=== PATIENT | female | born 1955 | race Caucasian/White ===

== ENCOUNTER 2024-06-07 22:30 | Emergency (ER) | payer MEDICARE, MEDICAID, SELFPAY ==
--- NOTE | ~2024-06-07 | CT_ITS ---
CT of the Abdomen and Pelvis: Indication: Abdominal pain Technique: 2.5 mm axial scans were obtained through the abdomen and pelvis following intravenous adm inistration of 100 cc of Omnipaque 350. Dose reduction technique was used on this scan by utilizing a utomated exposure control and iterative reconstruction technique. The dose-length product (DLP) was 1 739.41 mGy-cm. Findings: Scans through the lung bases are unremarkable. The liver, spleen, and pancreas are within normal limits. Suspected subtle gallstones. Bilateral adre nal nodules are present, measuring 1.8 cm and the left adrenal gland, and 1.5 cm in the right. There is an 8 mm stone at the left UPJ region, with mild to moderate left hydronephrosis. There is an addit ional 12 mm stone more centrally in the left renal pelvis, partially obstructing. Small left lower po le renal stones are present measuring up to 5 mm. Probable punctate nonobstructing right renal stone. No right ureteral stone or right hydronephrosis. No evidence of aortic aneurysm. No lymphadenopathy . No bowel obstruction or bowel wall thickening. There is no evidence to suggest acute appendicitis. Images through the pelvis were performed. Urinary bladder unremarkable. Uterine fibroids are present. No ascites.There is extensive degenerative spondylosis of the spine. Impression: 8 mm obstructing stone at the left UPJ, with mild to moderate left hydronephrosis and mild left para stranding. Additional bilateral nonobstructing stones, left larger and more numerous than right, as detailed abo ve. Probable cholelithiasis. Uterine fibroids. Bilateral adrenal nodules, stable as compared to prior lumbar spine CT dated 04/19/2017. Stability ov er this interval is compatible with benign lesion such as adenomas.. Reviewed, dictated and finalized at location [facility] [employer] [employer] Impression: 8 mm obstructing stone at the left UPJ, with mild to moderate left hydronephros is and mild left para stranding. Additional bilateral nonobstructing stones, left larger and more numerous than right, as detailed above. Probable cholelithiasis. Uterine fibroids. Bilateral adrenal nodules, stable as compared to prior lumbar spine CT dated . Stability over this interval is compatible with benign lesion such as adenomas..
[2024-06-07 22:38] VITALS: BP 197/89; PULSE 103; RESP 16; TEMP 36.3; O2SAT 100
--- NOTE | 2024-06-08 01:04 | ED_ITS ---
HPI - General Adult General Chief complaint: Nausea/Vomiting/Diarrhea Stated complaint: suprapubic pain, n/v Time Seen by Provider: 06/07/24 23:57 History of Present Illness HPI narrative: Patient is a 68-year-old female who presents to the emergency department this evening complaining of a suprapubic pain associated with nausea and vomiting which started around 6:00 p.m. this evening. Patient states that she has been having these symptoms intermittently for the past few months but states that they have gotten worse the past few days. Patient states that today the pain was so severe that it caused her to vomit. Denies any urinary symptoms including dysuria or hematuria. Patient states that normally she has an overactive bladder and needs to pee every but noticed that for the past few hours she has not been able to urinate. Denies any hematuria. Denies any fevers or chills at home denies any upper abdominal/epigastric pain. Denies any constipation/diarrhea, melena or hematochezia. No additional symptoms or concerns at this time. Related Data Allergies Allergy/AdvReac Type Severity Reaction Status Date / Time NKDA Allergy Unknown Uncoded 12/19/02 13:34 Review of Systems 2 Review of Systems: All systems are reviewed and are negative unless stated otherwise in the HPI. Exam 2 Narrative: General: Alert, awake, afebrile, in no acute distress, obese. HEENT: PERRL, no rhinorrhea, no post nasal drip, oropharynx clear. Neck: Trachea midline, no JVD, no lymphadenopathy. Cardiovascular: Regular rate and rhythm, no murmurs, rubs or gallops, no peripheral edema. Respiratory: Clear to auscultation bilaterally, no tachypnea, no wheezing, no rhonchi, no rubs, no respiratory distress. Abdomen: Soft, nontender, nondistended, no rebound, no guarding, no peritoneal signs. Musculoskeletal: No joint swelling or deformity, normal muscle tone. Skin: No rashes or petechia, no signs of infection. Psychiatric: Alert and oriented, normal behavior and judgment for situation. Neurological: Alert and oriented to person, place, and time. Follows all commands. No focal deficits, speech is clear and fluent. Course Vital Signs Vital signs: Vital Signs Temperature 97.4 F L 06/07/24 22:38 Pulse Rate 103 H 06/07/24 22:38 Respiratory Rate 16 06/07/24 22:38 Blood Pressure 197/89 H 06/07/24 22:38 Pulse Oximetry 100 06/07/24 22:38 Oxygen Delivery Room Air 06/07/24 22:38 Temperature 97.4 F L 06/07/24 22:38 Pulse Rate 103 H 06/07/24 22:38 Respiratory Rate 16 06/07/24 22:38 Blood Pressure 197/89 H 06/07/24 22:38 Pulse Oximetry 100 06/07/24 22:38 Oxygen Delivery Room Air 06/07/24 22:38 Medical Decision Making MDM Narrative Medical decision making narrative: The patient was evaluated by myself in the emergency department. History is obtained from patient who is an independent historian and physical exam was performed. External medical records were reviewed at this time. IV was established and pertinent tests were ordered. Patient was administered an oral Tylenol for her arthritis pain per her request as a sitting in the waiting room/wheelchair has been very uncomfortable. She states that her suprapubic pain is intermittent and currently denies any suprapubic pain. Laboratory results obtained revealing a leukocytosis of 14, lactic acid 2.3 otherwise unremarkable. Urinalysis revealed 2+ blood otherwise unremarkable. Imaging studies obtained included CT abdomen pelvis with IV contrast which was independently interpreted by me revealing a 6 x 7 mm left UVJ obstructing stone with mild left-sided hydronephrosis, which is pending final radiology interpretation. Patient was informed of these findings at bedside and that she will need to follow-up with urology as an outpatient and patient is agreeable with this plan. Differential diagnosis considerations include urinary tract infection, renal colic/nephrolithiasis, pyelonephritis. Comorbidities impacting this visit include none. I have evaluated and discussed social determinants of health with the patient that could potentially impact subsequent diagnosis and treatment plans. On repeat assessment of the patient, reevaluation revealed that the patient is doing well and is in no acute distress. Patient symptoms have improved since she arrived to our emergency department. Repeat vital signs were all reviewed and noted to be stable. Differential diagnosis and treatment plan were discussed with the patient at bedside. Patient agrees with discussion and after shared medical decision making agrees with discharge. All questions were answered to the patient's satisfaction. Patient will follow up with Urology with Dr. Mckeon in 3-5 days. She was provided with scripts for [place], Zofran, Flomax and ibuprofen to use as prescribed for her kidney stone. She was also provided with a urine strainer in the emergency department. Patient was administered an oral [place] 5-325 mg in the ED since her pharmacy does not open for few hours. Patient was provided with strict return precautions and instructed to return to the emergency department if any new or worsening symptoms develop. The patient was discharged in stable condition. Vital Signs Vital Signs: Vital Signs Temperature 97.4 F L 06/07/24 22:38 Pulse Rate 103 H 06/07/24 22:38 Respiratory Rate 16 06/07/24 22:38 Blood Pressure 197/89 H 06/07/24 22:38 Pulse Oximetry 100 06/07/24 22:38 Oxygen Delivery Room Air 06/07/24 22:38 Temperature 97.4 F L 06/07/24 22:38 Pulse Rate 103 H 06/07/24 22:38 Respiratory Rate 16 06/07/24 22:38 Blood Pressure 197/89 H 06/07/24 22:38 Pulse Oximetry 100 06/07/24 22:38 Oxygen Delivery Room Air 06/07/24 22:38 Lab Data 06/08/24 01:22 06/08/24 01:22 Labs: Lab Results 06/08/24 Range/Units 01:22 WBC 14.6 H (4.5-10.0) K/mm3 RBC 4.85 (4.2-5.4) M/mm3 Hgb 14.4 (12.0-15.0) g/dL Hct 43.4 (37.0-47.0) % MCV 89.5 (80-100) fl MCH 29.7 (26-34) pg MCHC 33.2 (32-36) g/dl RDW 13.9 (11.5-14.5) % Plt Count 354 (150-375) k/mm3 MPV 11.1 H (7.4-10.4) fl Immature Gran % (Auto) 0.5 (0-0.5) % Neut % (Auto) 83.4 H (45.5-73.1) % Lymph % (Auto) 10.0 L (18.3-44.2) % [place] % (Auto) 5.1 (2.6-8.5) % Eos % (Auto) 0.5 (0-4.4) % Baso % (Auto) 0.5 (0.2-1.2) % Lymph # (Auto) 1.46 (0.9-3.2) K/mm3 [place] # (Auto) 0.7 H (0.1-0.6) K/mm3 Eos # (Auto) 0.1 (0-0.3) K/mm3 Baso # (Auto) 0.1 (0.0-0.1) K/mm3 Abs Immat Gran (auto) 0.07 H (0.00-0.031) K/mm3 Absolute Neuts (auto) 12.2 H (1.3-6.7) K/mm3 Absolute Nucleated RBC 0.000 (0.0-0.012) K/mm3 Nucleated RBC % 0.0 (0.0-0.2) % Sodium 138 (137-145) mmol/L Potassium 4.0 (3.4-5.0) mmol/L Chloride 105 (98-107) mmol/L Carbon Dioxide 26 (22-30) mmol/L Anion Gap 7 (4-12) mmol/L BUN 25 H (7-17) mg/dL Creatinine 0.70 (0.7-1.0) mg/dL Estim Creat Clear Calc 87 ml/min Estimated GFR > 60 (59 - ) Glucose 130 H (65-110) mg/dL Lactic Acid 2.3 H (0.7-2.0) mmol/L Calcium 9.8 (8.4-10.2) mg/dL Magnesium 2.0 (1.6-2.3) mg/dL Total Bilirubin 0.4 (0.2-1.3) mg/dL AST 23 (14-36) U/L ALT 16 (6-35) U/L Alkaline Phosphatase 112 (38-126) U/L Total Protein 8.0 (6.3-8.2) g/dL Albumin 4.3 (3.5-5.1) g/dL Lipase 54 (23-300) U/L Urine Color Yellow (Yellow) Urine Appearance Clear (Clear) Urine pH 5.5 (5.0-9.0) Ur Specific [place] 1.010 (1.001-1.035) Urine Protein Negative (Negative) mg/dL Urine Glucose (UA) Negative (Negative) mg/dL Urine Ketones Negative (Negative) mg/dL Ur Blood (Man) 2+ H (Negative) Urine Nitrate Negative (Negative) Urine Bilirubin Negative (Negative) Urine Urobilinogen 0.2 (<2.0) mg/dL Leukocyte Esterase Rfl Trace H (Negative) CLAUDIA/UL Urine RBC 0-2 (0-2) /hpf Urine WBC 6-10 H (0-3) /hpf Ur Squamous Epith Cells None seen (Few) /hpf Urine Bacteria None seen /hpf Urine Casts 0-2 Discharge Plan Discharge Clinical Impression: Abdominal pain, Kidney stone Patient Disposition: Home, Self-Care Condition: Stable Instructions: Antibiotic Form, Kidney Stones (ED), How to Strain Your Urine (ED), Abdominal Pain (ED) Additional Instructions: Please take the prescribed medications as instructed to help past your kidney stone. You will need to follow-up with the urologist you were provided with today, make sure you call this morning to set up a follow-up appointment to be seen within the next 3-5 days. Return to the emergency department if any new or worsening symptoms develop. Patient Language: Japanese Prescriptions: New tamsulosin [Flomax] 0.4 mg capsule 0.4 mg PO DAILY Qty: 14 0RF hydrocodone-acetaminophen 5-325 mg tablet 1 tablet PO Q8H PRN (Reason: pain) 7 Days Qty: 14 0RF ondansetron 4 mg tablet,disintegrating 4 mg PO Q8H PRN (Reason: nausea and vomiting) 7 Days Qty: 14 0RF ibuprofen 400 mg tablet 400 mg PO TID PRN (Reason: pain) 7 Days Qty: 20 0RF Follow-up/Referrals: Dr. Yanez [Other] - 06/12/24 Lokesh,MD Joe [Primary Care Provider] - Time of Disposition: 04:20
[2024-06-08] MEDS: SODIUM CHLORIDE 0.9% IV 1,000 ML 999 ML IV CONT (01:24)
[2024-06-08 01:37] LABS: Basophils Absolute Auto 0.1 K/mm3 (0.0-0.1); Basophils Percent Auto 0.5 % (0.2-1.2); Eosinophils Absolute Auto 0.1 K/mm3 (0-0.3); Eosinophils Percent Auto 0.5 % (0-4.4); Hematocrit 43.4 % (37.0-47.0); Hemoglobin 14.4 g/dL (12.0-15.0); Immature Granulocyte Absolute 0.07 K/mm3 (0.00-0.031); Immature Granulocyte Percent A 0.5 % (0-0.5); Lymphocytes Absolute Auto 1.46 K/mm3 (0.9-3.2); Mean Corpuscular HGB Conc 33.2 g/dl (32-36); Mean Corpuscular Hemoglobin 29.7 pg (26-34); Mean Corpuscular Volume 89.5 fl (80-100); Mean Platelet Volume 11.1 fl (7.4-10.4); Monocytes Absolute Auto 0.7 K/mm3 (0.1-0.6); Monocytes Percent Auto 5.1 % (2.6-8.5); Neutrophils Absolute Auto 12.2 K/mm3 (1.3-6.7); Neutrophils Percent Auto 83.4 % (45.5-73.1); Platelet Count Result 354 k/mm3 (150-375); Red Blood Count 4.85 M/mm3 (4.2-5.4); Red Cell Distribution Width 13.9 % (11.5-14.5); White Blood Count 14.6 K/mm3 (4.5-10.0)
[2024-06-08 01:40] LABS: Add Urine Microscopic? YES; Appearance Urine Clear (Clear); Bacteria Urine None Seen /hpf; Bilirubin Urine Negative (Negative); Blood Urine 2+ (Negative); Color Urine Yellow (Yellow); Glucose Urine UA Negative (Negative); Ketones Urine Negative (Negative); Leukocyte Esterase Ur Trace LEU/UL (Negative); Nitrate Urine Negative (Negative); Non Pathogenic Casts 0-2; Protein Urine Negative (Negative); RBC Urine 0-2 /hpf (0-2); Squamous Epithelial Cell Urine None Seen /hpf (Few); Urobilinogen Urine 0.2 mg/dL (<2.0); pH Urine 5.5 (5.0-9.0)
[2024-06-08 01:42] LABS: Alanine Aminotransferase 16 U/L (6-35); Albumin Level 4.3 g/dL (3.5-5.1); Alkaline Phosphatase 112 U/L (38-126); Anion Gap 7 mmol/L (4-12); Aspartate Amino Transferase 23 U/L (14-36); Bilirubin,Total 0.4 mg/dL (0.2-1.3); Blood Urea Nitrogen 25 mg/dL (7-17); Calcium 9.8 mg/dL (8.4-10.2); Carbon Dioxide 26 mmol/L (22-30); Chloride 105 mmol/L (98-107); Estimated CRCL calculation 87 ml/min; Estimated Glomerular Filt Rate > 60; Glucose 130 mg/dL (65-110); Lactic Acid Reflex 2.3 mmol/L (0.7-2.0); Lipase 54 U/L (23-300); Sodium 138 mmol/L (137-145)
[2024-06-08] MEDS: ACETAMINOPHEN 500 MG TABLET 1000 MG PO (03:31)
[2024-06-08 04:28] LABS: Reflex Lactic Acid Yes or No Add Lactic
[2024-06-08] MEDS: HYDROcodone/acetaminophen (*CRX) 5-325 MG TABLET 1 TAB PO (04:30)
== END 2024-06-08 04:25 | disposition home or self-care (01) ==
PROVIDERS: Emergency Provider Emergency Medicine; PCP Internal Medicine
DX: N13.2 Hydronephrosis with renal and ureteral calculous obstruction (principal); D25.9 Leiomyoma of uterus, unspecified; E27.8 Other specified disorders of adrenal gland; R93.2 Abnormal findings on diagnostic imaging of liver and biliary tract
CPT/HCPCS: 36415; 74177; 80053; 81001; 83605; 83690; 83735; 85025; 87086; 87186; 96360; 99284; A9270; J7030; Q9967